=== PATIENT | female | born 1960 | race Caucasian/White ===

== ENCOUNTER 2017-05-30 09:54 | Day surgery (SDC) | payer OTHER ==
[~2017-05-30 09:54] MED LIST: SUCCINYLCHOLINE CHLORIDE 100 MG/5 ML SYG IV
[2017-05-30 10:49] LABS: ADD MAN DIFF? NO
[2017-05-30 10:55] LABS: BASOPHIL # 0.1 10^3/ul (0.0-0.1); BASOPHILS % 0.8 % (0.0-2.0); EOSINOPHILS % 0.5 % (0.0-7.0); HEMATOCRIT 39.5 % (37.0-47.0); HEMOGLOBIN 12.8 g/dl (12.0-16.0); LYMPHOCYTES # 2.3 10^3/ul (0.8-2.9); LYMPHOCYTES % 29.1 % (15.0-51.0); MEAN CORPUSCULAR HEMOGLOBIN 26.8 pg (29.0-33.0); MEAN CORPUSCULAR HGB CONC 32.4 g/dl (32.0-37.0); MEAN CORPUSCULAR VOLUME 82.8 fl (82.0-101.0); MEAN PLATELET VOLUME 10.2 fl (7.4-10.4); MONOCYTE # 0.5 10^3/ul (0.3-0.9); MONOCYTES % 6.6 % (0.0-11.0); NEUTROPHILS % 62.5 % (39.0-77.0); PLATELET COUNT 328 10^3/UL (140-415); RED BLOOD COUNT 4.77 10^6/ul (4.20-5.40); RED CELL DISTRIBUTION WIDTH 12.7 % (11.5-14.5)
[2017-05-30] MEDS ORDERED: PROPOFOL 20 ML (11:04)
[2017-05-30] MEDS ORDERED: MIDAZOLAM 1 MG/ML 2 ML INJ (11:04)
[2017-05-30] MEDS ORDERED: DEXAMETHASONE 4 MG/ML 1 ML INJ (11:04)
[2017-05-30] MEDS ORDERED: FENTAnyl 50 MCG/ML VIAL (11:04)
[2017-05-30] MEDS ORDERED: NEOSTIGMINE 3 MG/3 ML SYRINGE (11:04)
[2017-05-30] MEDS ORDERED: ROCURONIUM 50 MG INJ (11:04)
[2017-05-30] MEDS ORDERED: GLYCOPYRROLATE 0.4 MG INJ (11:04)
[2017-05-30] MEDS ORDERED: CEFAZOLIN 1 GM INJ (11:04)
[2017-05-30] MEDS ORDERED: ONDANSETRON 4 MG INJ ×2 (11:04→11:41)
[2017-05-30 11:12] LABS: ALANINE AMINOTRANSFERASE 39 IU/L (13-69); ALBUMIN 4.2 g/dl (3.3-4.9); ALKALINE PHOSPHATASE 78 IU/L (42-121); ANION GAP 16 (8-16); ASPARTATE AMINO TRANSFERASE 22 IU/L (15-46); BILIRUBIN,INDIRECT 0.2 mg/dl (0-1.1); BILIRUBIN,TOTAL 0.2 mg/dl (0.2-1.3); CARBON DIOXIDE 25 mmol/L (21-31); CHLORIDE 104 mmol/L (97-110); GLUCOSE 196 mg/dl (70-220); TOTAL PROTEIN 7.7 g/dl (6.1-8.1)
[2017-05-30 11:13] LABS: BLOOD UREA NITROGEN 10 mg/dl (7-20); CALCIUM 9.4 mg/dl (8.4-10.2); CREATININE 0.43 mg/dl (0.44-1.00); POTASSIUM 4.3 mmol/L (3.5-5.1); SODIUM 141 mmol/L (135-144)
[2017-05-30 11:26] LABS: INR 0.97
[2017-05-30] MEDS ORDERED: SUGAMMADEX SODIUM 200 MG/2 ML VIAL IV (11:33)
[2017-05-30] MEDS ORDERED: TRIMETHOBENZAMIDE 100 MG/ML VIAL IM (12:00)
[2017-05-30] MEDS ORDERED: MIDAZOLAM 1 MG/ML 2 ML INJ IV (12:00)
[2017-05-30] MEDS ORDERED: FENTAnyl 50 MCG/ML VIAL IV ×3 (12:00)
[2017-05-30] MEDS ORDERED: HYDROmorphONE (0.2 MG/ML) 10ML SYG IV ×3 (12:00)
[2017-05-30] MEDS ORDERED: ONDANSETRON 4 MG INJ IV (12:00)
[2017-05-30] MEDS ORDERED: LABETALOL HCL 20MG INJ IV (12:00)
[2017-05-30] MEDS ORDERED: IPRATROPIUM (NEB) 0.5 MG/2.5 ML AMP HHN (12:00)
[2017-05-30] MEDS ORDERED: OXYCODONE/ACETAMINOPHEN (5/325) TAB PO ×2 (12:00)
[2017-05-30] MEDS ORDERED: hydrALAzine 20 MG INJ IV (12:00)
[2017-05-30] MEDS ORDERED: EPHEDrine SULFATE 50 MG/5 ML SYG IV (12:00)
[2017-05-30] MEDS ORDERED: DIPHENHYDRAMINE 50 MG INJ IV (12:00)
[2017-05-30] MEDS ORDERED: MEPERIDINE 25 MG INJ IV (12:00)
[2017-05-30] MEDS ORDERED: ALBUTEROL 0.083% (NEB) 2.5 MG/3 ML AMP HHN (12:00)
[2017-05-30] MEDS ORDERED: ACETAMINOPHEN 325 MG TAB PO (12:30)
[2017-05-30] MEDS ORDERED: HYDROCODONE/APAP (5/325) TAB PO (12:30)
[2017-05-30] MEDS: LIDOCAINE 1%/EPI 30 ML INJ (12:58)
[2017-05-30] MEDS: ONDANSETRON 4 MG INJ IV (14:27)
== END 2017-05-30 14:47 | disposition home or self-care (01) ==
LOC: SDS 09:54
DX: D23.12 Other benign neoplasm of skin of left eyelid, including canthus (principal); D23.11 Other benign neoplasm of skin of right eyelid, including canthus; E11.9 Type 2 diabetes mellitus without complications; I10 Essential (primary) hypertension
CPT/HCPCS: 67840; 71045; 80053; 82962; 84703; 85025; 85610; 85730; 88307

== ENCOUNTER 2018-09-30 00:39 | Inpatient (IN) | payer OTHER ==
[2018-09-30 01:04] LABS: ADD MAN DIFF? NO
[2018-09-30 01:05] LABS: WHITE BLOOD COUNT 19.2 10^3/ul (4.8-10.8)
[2018-09-30 01:05] LABS: ABNORMAL IP MESSAGE 1; BASOPHIL # 0.1 10^3/ul (0.0-0.1); BASOPHILS % 0.7 % (0.0-2.0); EOSINOPHILS # 0.1 10^3/ul (0.0-0.5); EOSINOPHILS % 0.4 % (0.0-7.0); HEMATOCRIT 42.1 % (37.0-47.0); HEMOGLOBIN 12.9 g/dl (12.0-16.0); LYMPHOCYTES # 8.9 10^3/ul (0.8-2.9); LYMPHOCYTES % 46.3 % (15.0-51.0); MEAN CORPUSCULAR HEMOGLOBIN 27.9 pg (29.0-33.0); MEAN CORPUSCULAR HGB CONC 30.6 g/dl (32.0-37.0); MEAN CORPUSCULAR VOLUME 90.9 fl (82.0-101.0); MEAN PLATELET VOLUME 10.9 fl (7.4-10.4); MONOCYTE # 0.6 10^3/ul (0.3-0.9); MONOCYTES % 3.3 % (0.0-11.0); NEUTROPHIL # 8.9 10^3/ul (1.6-7.5); NEUTROPHILS % 46.2 % (39.0-77.0); NUCLEATED RED BLOOD CELLS% 0.2 /100WBC (0.0-0.0); PLATELET COUNT 203 10^3/UL (140-415); RED BLOOD COUNT 4.63 10^6/ul (4.20-5.40); RED CELL DISTRIBUTION WIDTH 12.4 % (11.5-14.5)
[2018-09-30 01:11] LABS: INR 1.13; PROTIME 14.6 Sec (11.9-14.9); PT RATIO 1.1
[2018-09-30 01:12] LABS: PARTIAL THROMBOPLASTIN TIME 42.7 Sec (23.0-35.0)
[2018-09-30] MEDS: morphine 4 MG/ML VIAL IV (01:12)
[2018-09-30 01:15] LABS: POSITIVE DIFF @See below
[2018-09-30 01:18] LABS: ALANINE AMINOTRANSFERASE 81 IU/L (13-69); ALBUMIN 3.3 g/dl (3.3-4.9); ALBUMIN/GLOBULIN RATIO 1.32; ALKALINE PHOSPHATASE 58 IU/L (42-121); ANION GAP 15 (5-13); ASPARTATE AMINO TRANSFERASE 67 IU/L (15-46); BILIRUBIN,INDIRECT 0.3 mg/dl (0-1.1); BILIRUBIN,TOTAL 0.3 mg/dl (0.2-1.3); BLOOD UREA NITROGEN 14 mg/dl (7-20); CALCIUM 11.2 mg/dl (8.4-10.2); CARBON DIOXIDE 19 mmol/L (21-31); CHLORIDE 99 mmol/L (97-110); CREATININE 0.65 mg/dl (0.44-1.00); Estimated GFR > 60 mL/min (>60); LIPASE 811 U/L (23-300); MAGNESIUM 2.8 mg/dl (1.7-2.5); PHOSPHORUS 7.6 mg/dl (2.5-4.9); SODIUM 133 mmol/L (135-144); TOTAL PROTEIN 5.8 g/dl (6.1-8.1)
[2018-09-30 01:21] LABS: POTASSIUM 2.9 mmol/L (3.5-5.1)
[2018-09-30 01:22] LABS: GLUCOSE 610 mg/dl (70-220)
[2018-09-30] MEDS ORDERED: HEPARIN 1000 UNITS/ML 10 ML INJ (01:25)
[2018-09-30] MEDS ORDERED: LIDOCAINE 1% (MDV) 20 ML INJ (01:25)
[2018-09-30] MEDS ORDERED: IODIXANOL LOCM 100 ML BTL (01:25)
[2018-09-30] MEDS ORDERED: VERAPAMIL 5 MG INJ (01:26)
[2018-09-30] MEDS ORDERED: MIDAZOLAM 1 MG/ML 2 ML INJ (01:26)
[2018-09-30] MEDS ORDERED: FENTAnyl 50 MCG/ML VIAL (01:26)
[2018-09-30] MEDS ORDERED: NITROGLYCERIN (IC) 100 MCG/ML INJ (01:26)
[2018-09-30] MEDS: POTASSIUM CHLORIDE 50 ML IVPB ×4 (01:30→15:05)
[2018-09-30 01:33] LABS: ADD UMIC NO; ETHANOL < 10.0 mg/dl (0-0); UR ASCORBIC ACID NEGATIVE (NEGATIVE); UR BILIRUBIN (Dip) NEGATIVE (NEGATIVE); UR BLOOD (Dip) NEGATIVE (NEGATIVE); UR CLARITY CLEAR (CLEAR); UR COLOR YELLOW (YELLOW); UR GLUCOSE (Dip) 1+ mg/dL (NEGATIVE); UR KETONES (Dip) 1+ mg/dL (NEGATIVE); UR LEUKOCYTE ESTERASE (Dip) NEGATIVE Leu/ul (NEGATIVE); UR NITRITE (Dip) NEGATIVE (NEGATIVE); UR SPECIFIC GRAVITY (Dip) 1.021 (1.003-1.030); UR TOTAL PROTEIN (Dip) NEGATIVE (NEGATIVE); UR UROBILINOGEN (Dip) NEGATIVE (NEGATIVE)
[2018-09-30 01:35] LABS: TROPONIN-I 0.255 ng/ml (0.000-0.120)
[2018-09-30] MEDS ORDERED: PROPOFOL 100 ML (01:50)
[2018-09-30] MEDS ORDERED: HYDROCODONE/APAP (5/325) TAB PO (02:00)
[2018-09-30] MEDS: ACCU-CHEK XX ×29 (02:00→23:00)
[2018-09-30] MEDS ORDERED: ONDANSETRON 4 MG INJ IV (02:00)
[2018-09-30] MEDS ORDERED: morphine 2 MG INJ IV (02:00)
[2018-09-30] MEDS ORDERED: NITROGLYCERIN (SL) 0.4 MG TAB SL (02:00)
[2018-09-30] MEDS ORDERED: ACETAMINOPHEN 650 MG SUPP PR (02:00)
[2018-09-30] MEDS ORDERED: DEXTROSE 50% 50 ML SYRINGE IV ×2 (02:00)
[2018-09-30] MEDS ORDERED: MAGNESIUM HYDROXIDE 30ML CUP PO (02:00)
[2018-09-30] MEDS ORDERED: NACL 0.9% 3 ML SYG IV (02:00)
[2018-09-30] MEDS ORDERED: LORAZEPAM 2 MG INJ IV (02:00)
[2018-09-30] MEDS ORDERED: ALBUTEROL/IPRATROPIUM (NEB) 3 ML AMP HHN (02:00)
[2018-09-30] MEDS ORDERED: hydrALAzine 20 MG INJ IV (02:00)
[2018-09-30] MEDS ORDERED: DOCUSATE SODIUM 100 MG CAP PO (02:00)
[2018-09-30] MEDS ORDERED: MEPERIDINE 25 MG INJ IV ×3 (02:00→07:30)
[2018-09-30 02:14] LABS: LACTIC ACID 12.5 mmol/L (0.5-2.0)
[2018-09-30 02:15] LABS: AMPHETAMINE/METHAMPHETAMINE Negative (NEGATIVE); BARBITURATES Negative (NEGATIVE); BENZODIAZEPINES Negative (NEGATIVE); CANNABINOIDS Negative (NEGATIVE); COCAINE Negative (NEGATIVE); OPIATES Negative (NEGATIVE)
[2018-09-30] MEDS ORDERED: POTASSIUM CHLORIDE 50 ML (02:24)
[2018-09-30 02:39] LABS: CREATINE KINASE 179 IU/L (23-200)
[2018-09-30] MEDS ORDERED: TICAGRELOR 90 MG TABLET (02:43)
[2018-09-30] MEDS ORDERED: ASPIRIN 325 MG TAB (02:50)
[2018-09-30] MEDS ORDERED: ASPIRIN 81 MG TAB (02:51)
[2018-09-30 02:52] LABS: CK INDEX 5.2; CK-MB 9.28 ng/ml (0.0-2.4)
[2018-09-30 03:25] LABS: TROPONIN-I 0.866 ng/ml (0.000-0.120)
[2018-09-30] MEDS: AMIODARONE 900 MG in DEXTROSE 5% 482 ML IV (03:33)
[2018-09-30] MEDS: SODIUM CHLORIDE 0.9% 1L BAG IV* (03:34)
[2018-09-30] MEDS: INSULIN HUMAN REGULAR 100 UNIT in SOD CHLORIDE 0.9% 99 ML IV ×3 (03:36→15:30)
[2018-09-30 03:41] LABS: AADO2 Arterial 569.3 mmHg (7.0-24.0); Arterial Base Excess -15.3 mmol/L (-3.0-3); Arterial Blood Gas Oxygen Sat 92.6 mmHG (95.0-98.0); Arterial COHb 0.1 % (0.0-3.0); Arterial Fraction of Oxyhgb 92.2 % (93.0-99.0); Arterial HCO3 15.5 mmol/L (22.0-26.0); Arterial MetHb 0.3 % (0.0-1.5); Arterial pCO2 56.8 mmhg (35-45); MODE VENT - AC; Site A-Line
[2018-09-30] MEDS: PROPOFOL 100 ML IV (03:41)
[2018-09-30] MEDS: NORepinephrine 8MG/250 ML (PMX 250 ML IV (03:43)
[2018-09-30] MEDS: TICAGRELOR 90 MG TABLET PO ×3 (03:53→20:34)
[2018-09-30] MEDS: ATORVASTATIN 80 MG TAB PO ×2 (03:54→20:40)
[2018-09-30] MEDS: VECURONIUM 100 MG in DEXTROSE 5% 100 ML IV (04:00)
[2018-09-30 04:06] LABS: ADD MAN DIFF? NO
[2018-09-30] MEDS: VANCOMYCIN 1 GM (PMX) 250 ML IVPB (04:22)
[2018-09-30] MEDS: CEFEPIME 2GM/50 ML (PMX) 50 ML IVPB (04:23)
[2018-09-30 04:28] LABS: CHOL/HDL RATIO 6.7 RATIO; CHOLESTEROL 216 mg/dl (100-200); HDL CHOLESTEROL 32 mg/dl (37-92); LDL CHOLESTEROL,CALCULATED 160 mg/dl; TRIGLYCERIDES 122 mg/dl (0-149)
[2018-09-30 04:28] LABS: HEMOGLOBIN A1C 7.7 % (0-5.9); POTASSIUM 5.8 mmol/L (3.5-5.1)
[2018-09-30 04:30] LABS: INR 1.62; PROTIME 19.3 Sec (11.9-14.9); PT RATIO 1.5
[2018-09-30 04:34] LABS: ANION GAP 11 (5-13); BLOOD UREA NITROGEN 19 mg/dl (7-20); CALCIUM 9.3 mg/dl (8.4-10.2); CARBON DIOXIDE 17 mmol/L (21-31); CHLORIDE 106 mmol/L (97-110); CREATININE 0.84 mg/dl (0.44-1.00); Estimated GFR > 60 mL/min (>60); POTASSIUM 5.9 mmol/L (3.5-5.1); SODIUM 134 mmol/L (135-144)
[2018-09-30 04:36] LABS: AMYLASE 191 U/L (11-123); LIPASE 589 U/L (23-300)
[2018-09-30 04:36] LABS: MAGNESIUM 2.1 mg/dl (1.7-2.5)
[2018-09-30 04:38] LABS: GLUCOSE 595 mg/dl (70-220)
[2018-09-30] MEDS: PIPER-TAZO 3.375 GM IV (PMX) 100 ML IVPB ×3 (04:43→18:05)
[2018-09-30 04:46] LABS: FREE T4 (FREE THYROXINE) 1.12 ng/dl (0.64-1.79)
[2018-09-30] MEDS: ARTIFICIAL TEARS 15 ML OPH BOTH EYES ×3 (05:16→18:05)
[2018-09-30 05:32] LABS: WHITE BLOOD COUNT 13.8 10^3/ul (4.8-10.8)
[2018-09-30 05:32] LABS: BASOPHIL # 0.1 10^3/ul (0.0-0.1); BASOPHILS % 0.9 % (0.0-2.0); EOSINOPHILS % 0.1 % (0.0-7.0); HEMATOCRIT 47.1 % (37.0-47.0); HEMOGLOBIN 14.9 g/dl (12.0-16.0); LYMPHOCYTES # 2.2 10^3/ul (0.8-2.9); LYMPHOCYTES % 15.9 % (15.0-51.0); MEAN CORPUSCULAR HEMOGLOBIN 28.2 pg (29.0-33.0); MEAN CORPUSCULAR HGB CONC 31.6 g/dl (32.0-37.0); MONOCYTE # 0.3 10^3/ul (0.3-0.9); MONOCYTES % 2.1 % (0.0-11.0); NEUTROPHIL # 11.1 10^3/ul (1.6-7.5); NEUTROPHILS % 80.3 % (39.0-77.0); NUCLEATED RED BLOOD CELLS% 0.1 /100WBC (0.0-0.0); PLATELET COUNT 468 10^3/UL (140-415); RED BLOOD COUNT 5.29 10^6/ul (4.20-5.40); RED CELL DISTRIBUTION WIDTH 12.5 % (11.5-14.5)
[2018-09-30] MEDS: PHENYLephrine 20MG IN 250 ML 250 ML IV ×2 (05:50→08:30)
[2018-09-30] MEDS: OCULAR LUBRICANT 3.5 GM OPH OINT BOTH EYES ×3 (06:00→18:05)
[2018-09-30] MEDS: LEVETIRACETAM 1000 MG (PMX) 100 ML IVPB ×2 (06:16→20:39)
[2018-09-30 07:25] LABS: D-DIMER > 10000.00 ng/ml (<460)
[2018-09-30 07:26] LABS: PARTIAL THROMBOPLASTIN TIME 163.7 Sec (23.0-35.0)
[2018-09-30 07:50] LABS: AADO2 Arterial 593.9 mmHg (7.0-24.0); Arterial Base Excess -18.4 mmol/L (-3.0-3); Arterial Blood Gas Oxygen Sat 89.9 mmHG (95.0-98.0); Arterial COHb 0 % (0.0-3.0); Arterial Fraction of Oxyhgb 89.7 % (93.0-99.0); Arterial HCO3 13.8 mmol/L (22.0-26.0); Arterial MetHb 0.2 % (0.0-1.5); Arterial pCO2 55.4 mmhg (35-45); MODE VENT - AC; Site A-Line; Temperature 35.3 C
[2018-09-30] MEDS ORDERED: NORepinephrine 8MG/250 ML (PMX 250 ML IV (08:00)
[2018-09-30] MEDS: MEPERIDINE 25 MG INJ IV (08:17)
[2018-09-30 08:22] LABS: LACTIC ACID 7.1 mmol/L (0.5-2.0)
[2018-09-30] MEDS: NA BICARBONATE 8.4% 50 ML SYG IV ×2 (08:56→12:46)
[2018-09-30] MEDS: BENAZEPRIL 10 MG TAB PO (08:56)
[2018-09-30] MEDS: VASOPRESSIN 60 UNIT in DEXTROSE 5% 57 ML IV ×2 (09:00→21:00)
[2018-09-30] MEDS: ASPIRIN (EC) 81 MG TAB PO (09:00)
[2018-09-30] MEDS: FAMOTIDINE 20 MG INJ IV ×2 (09:19→20:39)
[2018-09-30] MEDS ORDERED: SODIUM BICARBONATE (IV ADD) 100 MEQ in SOD CHLORIDE 0.45% 1,000 ML IV (09:30)
[2018-09-30] MEDS: SODIUM BICARBONATE (IV ADD) 100 MEQ in SOD CHLORIDE 0.45% 1,000 ML IV ×2 (09:38→23:34)
[2018-09-30] MEDS: ASPIRIN 81 MG TAB NGT (09:38)
[2018-09-30] MEDS: PHENYLephrine 80 MG in DEXTROSE 5% 242 ML IV (10:11)
[2018-09-30] MEDS: NORepinephrine 32 MG in DEXTROSE 5% 218 ML IV (11:37)
[2018-09-30 11:58] LABS: HEMATOCRIT 47.6 % (37.0-47.0); HEMOGLOBIN 15.3 g/dl (12.0-16.0); MEAN CORPUSCULAR HEMOGLOBIN 28.3 pg (29.0-33.0); MEAN CORPUSCULAR HGB CONC 32.1 g/dl (32.0-37.0); MEAN CORPUSCULAR VOLUME 88.1 fl (82.0-101.0); MEAN PLATELET VOLUME 9.8 fl (7.4-10.4); NUCLEATED RED BLOOD CELLS% 0.1 /100WBC (0.0-0.0); PLATELET COUNT 375 10^3/UL (140-415); RED CELL DISTRIBUTION WIDTH 12.5 % (11.5-14.5)
[2018-09-30 12:01] LABS: ADD MAN DIFF? YES; POSITIVE DIFF @See below
[2018-09-30 12:17] LABS: AADO2 Arterial 623.2 mmHg (7.0-24.0); Arterial Base Excess -9.9 mmol/L (-3.0-3); Arterial Blood Gas Oxygen Sat 94.2 mmHG (95.0-98.0); Arterial COHb 0 % (0.0-3.0); Arterial Fraction of Oxyhgb 94.1 % (93.0-99.0); Arterial HCO3 18.7 mmol/L (22.0-26.0); Arterial MetHb 0.1 % (0.0-1.5); Arterial pCO2 42.1 mmhg (35-45); MODE VENT - AC; Site A-Line; Temperature 32.5 C
[2018-09-30 12:19] LABS: ANION GAP 11 (5-13); BLOOD UREA NITROGEN 26 mg/dl (7-20); CALCIUM 9.3 mg/dl (8.4-10.2); CARBON DIOXIDE 23 mmol/L (21-31); CHLORIDE 112 mmol/L (97-110); CREATININE 0.97 mg/dl (0.44-1.00); Estimated GFR 59 mL/min (>60); GLUCOSE 209 mg/dl (70-220); MAGNESIUM 1.8 mg/dl (1.7-2.5); SODIUM 146 mmol/L (135-144)
[2018-09-30 12:25] LABS: POTASSIUM 2.5 mmol/L (3.5-5.1)
[2018-09-30 12:25] LABS: LACTIC ACID 7.5 mmol/L (0.5-2.0)
[2018-09-30] MEDS: MAGNESIUM SULFATE 2 GM/50 ML 50 ML IVPB (12:46)
[2018-09-30 12:52] LABS: ANISOCYTOSIS 2+ (0-0); BAND NEUTROPHILS #M 6.6 10^3/ul (0.0-0.6); BAND NEUTROPHILS % (M) 44 % (0-4); ERYTHROBLAST% (NRBC) (M) 1 % (0-0); GIANT THROMBO% (M) 1 % (0-0); LYMPHOCYTES #M 2.5 10^3/ul (0.8-2.9); LYMPHOCYTES % (M) 17 % (15-51); METAMYELOCYTES #M 0.1 10^3/ul (0.0-0.0); METAMYELOCYTES %M 1 % (0-0); MICROCYTOSIS 2+ (0-0); MONOCYTE #M 0.7 10^3/ul (0.3-0.9); MONOCYTES % (M) 5 % (0-11); PLATELET ESTIMATE NORMAL; POIKILOCYTOSIS 1+ (0-0); POLYCHROMASIA 3+ (0-0); SEG NEUT #M 5.9 10^3/ul (1.6-7.5); SEGMENTED NEUTROPHILS (M) % 33 % (39-77)
[2018-09-30 12:58] LABS: CK INDEX 7.8; CREATINE KINASE 7128 IU/L (23-200)
[2018-09-30 13:16] LABS: POTASSIUM 2.6 mmol/L (3.5-5.1)
[2018-09-30] MEDS ORDERED: POTASSIUM CHLORIDE 100 ML (13:41)
[2018-09-30] MEDS ORDERED: POTASSIUM CHLORIDE 100 ML IVPB ×2 (14:00)
[2018-09-30 18:36] LABS: AADO2 Arterial 609.4 mmHg (7.0-24.0); Arterial Base Excess -2.9 mmol/L (-3.0-3); Arterial Blood Gas Oxygen Sat 95.8 mmHG (95.0-98.0); Arterial COHb 0.3 % (0.0-3.0); Arterial Fraction of Oxyhgb 95.4 % (93.0-99.0); Arterial HCO3 23.1 mmol/L (22.0-26.0); Arterial MetHb 0.1 % (0.0-1.5); Arterial pCO2 40.2 mmhg (35-45); MODE VENT - AC; Site A-Line; Temperature 34.8 C
[2018-09-30 19:12] LABS: HEMATOCRIT 44.2 % (37.0-47.0); HEMOGLOBIN 14.5 g/dl (12.0-16.0); MEAN CORPUSCULAR HEMOGLOBIN 27.9 pg (29.0-33.0); MEAN CORPUSCULAR HGB CONC 32.8 g/dl (32.0-37.0); MEAN CORPUSCULAR VOLUME 85.2 fl (82.0-101.0); MEAN PLATELET VOLUME 10.1 fl (7.4-10.4); PLATELET COUNT 330 10^3/UL (140-415); RED BLOOD COUNT 5.19 10^6/ul (4.20-5.40); RED CELL DISTRIBUTION WIDTH 12.5 % (11.5-14.5)
[2018-09-30 19:12] LABS: WHITE BLOOD COUNT 13.9 10^3/ul (4.8-10.8)
[2018-09-30 19:14] LABS: POSITIVE DIFF @See below
[2018-09-30 19:15] LABS: ADD MAN DIFF? YES
[2018-09-30 19:32] LABS: LIPASE 212 U/L (23-300)
[2018-09-30 19:32] LABS: AMYLASE 200 U/L (11-123); ANION GAP 6 (5-13); BLOOD UREA NITROGEN 32 mg/dl (7-20); CARBON DIOXIDE 28 mmol/L (21-31); CHLORIDE 112 mmol/L (97-110); CREATININE 0.93 mg/dl (0.44-1.00); Estimated GFR > 60 mL/min (>60); GLUCOSE 111 mg/dl (70-220); MAGNESIUM 2.4 mg/dl (1.7-2.5); POTASSIUM 3.1 mmol/L (3.5-5.1); SODIUM 146 mmol/L (135-144)
[2018-09-30 19:36] LABS: LACTIC ACID 5.6 mmol/L (0.5-2.0)
[2018-09-30 19:41] LABS: INR 1.28; PARTIAL THROMBOPLASTIN TIME 28.4 Sec (23.0-35.0); PROTIME 16.1 Sec (11.9-14.9); PT RATIO 1.3
[2018-09-30 19:56] LABS: BAND NEUTROPHILS #M 4.3 10^3/ul (0.0-0.6); BAND NEUTROPHILS % (M) 31 % (0-4); BURR CELLS 1+ (0-0); GIANT THROMBO% (M) 3 % (0-0); LYMPHOCYTES #M 1.2 10^3/ul (0.8-2.9); LYMPHOCYTES % (M) 9 % (15-51); METAMYELOCYTES #M 0.1 10^3/ul (0.0-0.0); METAMYELOCYTES %M 1 % (0-0); MONOCYTE #M 0.9 10^3/ul (0.3-0.9); MONOCYTES % (M) 7 % (0-11); PLATELET ESTIMATE NORMAL; POIKILOCYTOSIS 1+ (0-0); SEG NEUT #M 7.8 10^3/ul (1.6-7.5); SEGMENTED NEUTROPHILS (M) % 52 % (39-77); SMUDGE%M 3 % (0-0)
[2018-09-30] MEDS: POTASSIUM CHLORIDE 100 ML IVPB (23:09)
[2018-09-30] MEDS: DOPamine 800 MG in DEXTROSE 5% 230 ML IV (23:34)
[2018-10-01] MEDS: ARTIFICIAL TEARS 15 ML OPH BOTH EYES ×5 (00:03→23:49)
[2018-10-01] MEDS: OCULAR LUBRICANT 3.5 GM OPH OINT BOTH EYES ×5 (00:04→23:49)
[2018-10-01] MEDS: VASOPRESSIN 60 UNIT in DEXTROSE 5% 57 ML IV ×2 (00:08→20:23)
[2018-10-01] MEDS: PIPER-TAZO 3.375 GM IV (PMX) 100 ML IVPB ×5 (00:14→23:49)
[2018-10-01] MEDS: ACCU-CHEK XX ×25 (01:00→23:57)
[2018-10-01] MEDS: ACETAMINOPHEN 650 MG SUPP PR ×4 (02:00→20:00)
[2018-10-01] MEDS: ACETAMINOPHEN 650MG/20.3ML CUP PO ×4 (02:00→20:36)
[2018-10-01 02:04] LABS: AADO2 Arterial 649.2 mmHg (7.0-24.0); Arterial Base Excess -0.8 mmol/L (-3.0-3); Arterial Blood Gas Oxygen Sat 88.4 mmHG (95.0-98.0); Arterial COHb 0.4 % (0.0-3.0); Arterial Fraction of Oxyhgb 87.9 % (93.0-99.0); Arterial HCO3 23.9 mmol/L (22.0-26.0); Arterial MetHb 0.2 % (0.0-1.5); Arterial pCO2 33.2 mmhg (35-45); MODE VENT - AC; Site A-Line
[2018-10-01 05:44] LABS: CHOL/HDL RATIO 3.5 RATIO; HDL CHOLESTEROL 42 mg/dl (37-92); LDL CHOLESTEROL,CALCULATED 79 mg/dl; TRIGLYCERIDES 136 mg/dl (0-149)
[2018-10-01 05:44] LABS: CHOLESTEROL 148 mg/dl (100-200)
[2018-10-01 05:47] LABS: HEMOGLOBIN A1C 7.6 % (0-5.9)
[2018-10-01 05:48] LABS: ANION GAP 8 (5-13); BLOOD UREA NITROGEN 37 mg/dl (7-20); CALCIUM 8.8 mg/dl (8.4-10.2); CARBON DIOXIDE 27 mmol/L (21-31); CHLORIDE 110 mmol/L (97-110); CREATININE 0.92 mg/dl (0.44-1.00); Estimated GFR > 60 mL/min (>60); GLUCOSE 144 mg/dl (70-220); MAGNESIUM 2.2 mg/dl (1.7-2.5); PHOSPHORUS 3.8 mg/dl (2.5-4.9); POTASSIUM 3.4 mmol/L (3.5-5.1); SODIUM 145 mmol/L (135-144)
[2018-10-01 05:49] LABS: LIPASE 98 U/L (23-300)
[2018-10-01 05:49] LABS: AMYLASE 115 U/L (11-123)
[2018-10-01 06:09] LABS: LACTIC ACID 4.9 mmol/L (0.5-2.0)
[2018-10-01 06:25] LABS: INR 1.24; PROTIME 15.7 Sec (11.9-14.9); PT RATIO 1.2
[2018-10-01 06:26] LABS: PARTIAL THROMBOPLASTIN TIME 29.3 Sec (23.0-35.0)
[2018-10-01 08:13] LABS: Arterial Base Excess 0.8 mmol/L (-3.0-3); Arterial Blood Gas Oxygen Sat 96.9 mmHG (95.0-98.0); Arterial COHb 0.3 % (0.0-3.0); Arterial Fraction of Oxyhgb 96.4 % (93.0-99.0); Arterial HCO3 24.1 mmol/L (22.0-26.0); Arterial MetHb 0.2 % (0.0-1.5); MODE VENT - AC; Site A-Line
[2018-10-01 08:41] LABS: Arterial pCO2 30.5 mmhg (35-45); Temperature 34.3 C
[2018-10-01] MEDS: FAMOTIDINE 20 MG INJ IV ×2 (08:41→20:35)
[2018-10-01] MEDS: BENAZEPRIL 10 MG TAB PO (08:41)
[2018-10-01] MEDS: TICAGRELOR 90 MG TABLET PO ×2 (08:43→20:35)
[2018-10-01] MEDS: ASPIRIN 81 MG TAB NGT (08:44)
[2018-10-01] MEDS: LEVETIRACETAM 1000 MG (PMX) 100 ML IVPB ×2 (08:44→20:34)
[2018-10-01 09:19] LABS: WHITE BLOOD COUNT 16.7 10^3/ul (4.8-10.8)
[2018-10-01 09:19] LABS: HEMATOCRIT 39.9 % (37.0-47.0); HEMOGLOBIN 13.5 g/dl (12.0-16.0); MEAN CORPUSCULAR HEMOGLOBIN 28.1 pg (29.0-33.0); MEAN CORPUSCULAR HGB CONC 33.8 g/dl (32.0-37.0); MEAN PLATELET VOLUME 10.8 fl (7.4-10.4); PLATELET COUNT 235 10^3/UL (140-415); RED BLOOD COUNT 4.81 10^6/ul (4.20-5.40); RED CELL DISTRIBUTION WIDTH 12.8 % (11.5-14.5)
[2018-10-01 09:21] LABS: ADD MAN DIFF? YES; POSITIVE DIFF @See below
[2018-10-01 10:05] LABS: ANISOCYTOSIS 3+ (0-0); BAND NEUTROPHILS % (M) 36 % (0-4); BURR CELLS 2+ (0-0); GIANT THROMBO% (M) 1 % (0-0); LYMPHOCYTES % (M) 18 % (15-51); MICROCYTOSIS 2+ (0-0); MONOCYTES % (M) 6 % (0-11); PLATELET ESTIMATE NORMAL; POIKILOCYTOSIS 3+ (0-0); POLYCHROMASIA 1+ (0-0); SEG NEUT #M 7.7 10^3/ul (1.6-7.5); SEGMENTED NEUTROPHILS (M) % 40 % (39-77)
[2018-10-01 11:05] LABS: ADD UMIC YES; UR ASCORBIC ACID NEGATIVE (NEGATIVE); UR BILIRUBIN (Dip) NEGATIVE (NEGATIVE); UR BLOOD (Dip) 1+ mg/dL (NEGATIVE); UR CLARITY SLIGHTLY CLOUDY (CLEAR); UR COLOR YELLOW (YELLOW); UR GLUCOSE (Dip) 1+ mg/dL (NEGATIVE); UR KETONES (Dip) TRACE mg/dL (NEGATIVE); UR LEUKOCYTE ESTERASE (Dip) NEGATIVE Leu/ul (NEGATIVE); UR NITRITE (Dip) NEGATIVE (NEGATIVE); UR RBC 14 /HPF (0-5); UR SPECIFIC GRAVITY (Dip) 1.033 (1.003-1.030); UR TOTAL PROTEIN (Dip) NEGATIVE (NEGATIVE); UR UROBILINOGEN (Dip) NEGATIVE (NEGATIVE); UR WBC 7 /HPF (0-5)
[2018-10-01 12:33] LABS: ADD MAN DIFF? NO
[2018-10-01 12:34] LABS: WHITE BLOOD COUNT 11.6 10^3/ul (4.8-10.8)
[2018-10-01 12:34] LABS: BASOPHIL # 0.1 10^3/ul (0.0-0.1); BASOPHILS % 0.4 % (0.0-2.0); HEMATOCRIT 36.8 % (37.0-47.0); HEMOGLOBIN 12.6 g/dl (12.0-16.0); LYMPHOCYTES # 1.7 10^3/ul (0.8-2.9); LYMPHOCYTES % 14.3 % (15.0-51.0); MEAN CORPUSCULAR HEMOGLOBIN 27.9 pg (29.0-33.0); MEAN CORPUSCULAR HGB CONC 34.2 g/dl (32.0-37.0); MEAN CORPUSCULAR VOLUME 81.4 fl (82.0-101.0); MEAN PLATELET VOLUME 10.2 fl (7.4-10.4); MONOCYTE # 0.6 10^3/ul (0.3-0.9); MONOCYTES % 5.3 % (0.0-11.0); NEUTROPHIL # 9.2 10^3/ul (1.6-7.5); NEUTROPHILS % 79.5 % (39.0-77.0); PLATELET COUNT 149 10^3/UL (140-415); RED BLOOD COUNT 4.52 10^6/ul (4.20-5.40); RED CELL DISTRIBUTION WIDTH 12.6 % (11.5-14.5)
[2018-10-01 12:52] LABS: ANION GAP 7 (5-13); BLOOD UREA NITROGEN 36 mg/dl (7-20); CALCIUM 8.6 mg/dl (8.4-10.2); CARBON DIOXIDE 28 mmol/L (21-31); CHLORIDE 109 mmol/L (97-110); CREATININE 0.78 mg/dl (0.44-1.00); Estimated GFR > 60 mL/min (>60); GLUCOSE 155 mg/dl (70-220); MAGNESIUM 2.1 mg/dl (1.7-2.5); PHOSPHORUS 4.3 mg/dl (2.5-4.9); POTASSIUM 3.1 mmol/L (3.5-5.1); SODIUM 144 mmol/L (135-144)
[2018-10-01 12:52] LABS: LACTIC ACID 3.6 mmol/L (0.5-2.0)
[2018-10-01] MEDS: NORepinephrine 32 MG in DEXTROSE 5% 218 ML IV (12:59)
[2018-10-01] MEDS ORDERED: PHENYLephrine 20MG IN 250 ML 250 ML (13:09)
[2018-10-01] MEDS: SODIUM BICARBONATE (IV ADD) 100 MEQ in SOD CHLORIDE 0.45% 1,000 ML IV (14:07)
[2018-10-01] MEDS: PROPOFOL 100 ML IV (14:09)
[2018-10-01] MEDS: POTASSIUM CHLORIDE 20 MEQ POWDER FOR ORAL SOLN GTB (14:16)
[2018-10-01] MEDS: FUROSEMIDE 20 MG INJ IV (16:51)
[2018-10-01 18:29] LABS: HEMATOCRIT 34.9 % (37.0-47.0); MEAN CORPUSCULAR HEMOGLOBIN 27.7 pg (29.0-33.0); MEAN CORPUSCULAR HGB CONC 34.4 g/dl (32.0-37.0); MEAN CORPUSCULAR VOLUME 80.6 fl (82.0-101.0); PLATELET COUNT 209 10^3/UL (140-415); RED BLOOD COUNT 4.33 10^6/ul (4.20-5.40); RED CELL DISTRIBUTION WIDTH 13.1 % (11.5-14.5)
[2018-10-01 18:30] LABS: ADD MAN DIFF? YES; POSITIVE DIFF @See below
[2018-10-01 18:37] LABS: AADO2 Arterial 521.5 mmHg (7.0-24.0); Arterial Base Excess 1.7 mmol/L (-3.0-3); Arterial Blood Gas Oxygen Sat 98.4 mmHG (95.0-98.0); Arterial COHb 0.3 % (0.0-3.0); Arterial Fraction of Oxyhgb 97.8 % (93.0-99.0); Arterial HCO3 24.7 mmol/L (22.0-26.0); Arterial MetHb 0.3 % (0.0-1.5); Arterial pCO2 33.7 mmhg (35-45); MODE VENT - AC; Site A-Line
[2018-10-01 18:49] LABS: INR 1.35; PARTIAL THROMBOPLASTIN TIME 26.3 Sec (23.0-35.0); PROTIME 16.8 Sec (11.9-14.9); PT RATIO 1.3
[2018-10-01 18:54] LABS: AMYLASE 93 U/L (11-123)
[2018-10-01 18:54] LABS: LIPASE 37 U/L (23-300)
[2018-10-01 18:55] LABS: LACTIC ACID 4.3 mmol/L (0.5-2.0)
[2018-10-01 18:56] LABS: ANION GAP 7 (5-13); BLOOD UREA NITROGEN 37 mg/dl (7-20); CALCIUM 8.1 mg/dl (8.4-10.2); CARBON DIOXIDE 28 mmol/L (21-31); CHLORIDE 110 mmol/L (97-110); CREATININE 0.98 mg/dl (0.44-1.00); Estimated GFR 59 mL/min (>60); GLUCOSE 155 mg/dl (70-220); MAGNESIUM 2.1 mg/dl (1.7-2.5); PHOSPHORUS 5.6 mg/dl (2.5-4.9); POTASSIUM 3.7 mmol/L (3.5-5.1); SODIUM 145 mmol/L (135-144)
[2018-10-01 19:09] LABS: ANISOCYTOSIS 1+ (0-0); BAND NEUTROPHILS #M 4.9 10^3/ul (0.0-0.6); BAND NEUTROPHILS % (M) 33 % (0-4); GIANT THROMBO% (M) 2 % (0-0); LYMPHOCYTES #M 1.3 10^3/ul (0.8-2.9); LYMPHOCYTES % (M) 9 % (15-51); MICROCYTOSIS 1+ (0-0); MONOCYTES % (M) 7 % (0-11); PLATELET ESTIMATE NORMAL; POIKILOCYTOSIS 3+ (0-0); REACTIVE LYMPHOCYTES #M 0.1 10^3/ul (0.0-0.0); REACTIVE LYMPHOCYTES% (M) 1 % (0-0); SEG NEUT #M 8.2 10^3/ul (1.6-7.5); SEGMENTED NEUTROPHILS (M) % 50 % (39-77); SMUDGE%M 5 % (0-0)
[2018-10-01] MEDS: ATORVASTATIN 80 MG TAB PO (20:34)
[2018-10-01] MEDS: FENTAnyl (DRIP) 1000 mcg/100mL 100 ML IV (20:35)
[2018-10-02 00:09] LABS: AADO2 Arterial 400.9 mmHg (7.0-24.0); Arterial COHb 0.3 % (0.0-3.0); Arterial Fraction of Oxyhgb 92.5 % (93.0-99.0); Arterial HCO3 26.1 mmol/L (22.0-26.0); Arterial MetHb 0.2 % (0.0-1.5); MODE VENT - AC; Site A-Line; Temperature 36.3 C
[2018-10-02] MEDS: PROPOFOL 100 ML IV ×2 (00:13→06:01)
[2018-10-02 00:30] LABS: HEMATOCRIT 32.7 % (37.0-47.0); HEMOGLOBIN 11.3 g/dl (12.0-16.0); MEAN CORPUSCULAR HEMOGLOBIN 28.3 pg (29.0-33.0); MEAN CORPUSCULAR HGB CONC 34.6 g/dl (32.0-37.0); MEAN PLATELET VOLUME 11.2 fl (7.4-10.4); NUCLEATED RED BLOOD CELLS% 0.1 /100WBC (0.0-0.0); PLATELET COUNT 236 10^3/UL (140-415); RED BLOOD COUNT 3.99 10^6/ul (4.20-5.40); RED CELL DISTRIBUTION WIDTH 13.2 % (11.5-14.5)
[2018-10-02 00:30] LABS: WHITE BLOOD COUNT 19.4 10^3/ul (4.8-10.8)
[2018-10-02 00:33] LABS: POSITIVE DIFF @See below
[2018-10-02 00:34] LABS: ADD MAN DIFF? YES
[2018-10-02] MEDS: INSULIN HUMAN REGULAR 100 UNIT in SOD CHLORIDE 0.9% 99 ML IV (00:42)
[2018-10-02] MEDS: ACCU-CHEK XX ×23 (00:56→22:58)
[2018-10-02 01:03] LABS: ANION GAP 8 (5-13); BLOOD UREA NITROGEN 39 mg/dl (7-20); CALCIUM 8.1 mg/dl (8.4-10.2); CARBON DIOXIDE 29 mmol/L (21-31); CHLORIDE 107 mmol/L (97-110); CREATININE 1.06 mg/dl (0.44-1.00); Estimated GFR 54 mL/min (>60); GLUCOSE 177 mg/dl (70-220); PHOSPHORUS 6.1 mg/dl (2.5-4.9); POTASSIUM 3.7 mmol/L (3.5-5.1); SODIUM 144 mmol/L (135-144)
[2018-10-02 01:09] LABS: LACTIC ACID 4.7 mmol/L (0.5-2.0)
[2018-10-02 01:21] LABS: ANISOCYTOSIS 1+ (0-0); BAND NEUTROPHILS #M 4.2 10^3/ul (0.0-0.6); BAND NEUTROPHILS % (M) 22 % (0-4); BURR CELLS 1+ (0-0); GIANT THROMBO% (M) 2 % (0-0); LYMPHOCYTES #M 3.1 10^3/ul (0.8-2.9); LYMPHOCYTES % (M) 16 % (15-51); MICROCYTOSIS 1+ (0-0); MONOCYTE #M 0.1 10^3/ul (0.3-0.9); MONOCYTES % (M) 1 % (0-11); OVALOCYTES 1+ (0-0); PLATELET ESTIMATE NORMAL; POIKILOCYTOSIS 1+ (0-0); SEG NEUT #M 12.6 10^3/ul (1.6-7.5); SEGMENTED NEUTROPHILS (M) % 61 % (39-77)
[2018-10-02] MEDS: ACETAMINOPHEN 650 MG SUPP PR ×2 (01:49→07:50)
[2018-10-02] MEDS: ACETAMINOPHEN 650MG/20.3ML CUP PO ×2 (01:58→07:50)
[2018-10-02] MEDS ORDERED: SOD CHLORIDE 0.9% 500 ML IV (02:00)
[2018-10-02] MEDS: ALBUMIN HUMAN 25% 100 ML IV ×2 (02:28→03:36)
[2018-10-02] MEDS: NORepinephrine 32 MG in DEXTROSE 5% 218 ML IV (03:53)
[2018-10-02] MEDS: FUROSEMIDE 20 MG INJ IV ×2 (05:01→18:12)
[2018-10-02] MEDS: SODIUM BICARBONATE (IV ADD) 100 MEQ in SOD CHLORIDE 0.45% 1,000 ML IV (05:13)
[2018-10-02] MEDS: ARTIFICIAL TEARS 15 ML OPH BOTH EYES ×4 (05:13→23:41)
[2018-10-02] MEDS: OCULAR LUBRICANT 3.5 GM OPH OINT BOTH EYES ×4 (05:13→23:41)
[2018-10-02] MEDS: PIPER-TAZO 3.375 GM IV (PMX) 100 ML IVPB ×4 (05:22→23:40)
[2018-10-02 05:26] LABS: WHITE BLOOD COUNT 16.2 10^3/ul (4.8-10.8)
[2018-10-02 05:26] LABS: HEMATOCRIT 27.8 % (37.0-47.0); HEMOGLOBIN 9.5 g/dl (12.0-16.0); MEAN CORPUSCULAR HEMOGLOBIN 28.4 pg (29.0-33.0); MEAN CORPUSCULAR HGB CONC 34.2 g/dl (32.0-37.0); MEAN CORPUSCULAR VOLUME 83.2 fl (82.0-101.0); MEAN PLATELET VOLUME 11.4 fl (7.4-10.4); PLATELET COUNT 204 10^3/UL (140-415); RED BLOOD COUNT 3.34 10^6/ul (4.20-5.40); RED CELL DISTRIBUTION WIDTH 13.1 % (11.5-14.5)
[2018-10-02 05:39] LABS: POSITIVE DIFF @See below
[2018-10-02 05:41] LABS: ADD MAN DIFF? YES
[2018-10-02 06:24] LABS: ANION GAP 11 (5-13); BLOOD UREA NITROGEN 40 mg/dl (7-20); CARBON DIOXIDE 34 mmol/L (21-31); CHLORIDE 106 mmol/L (97-110); CREATININE 1.17 mg/dl (0.44-1.00); Estimated GFR 48 mL/min (>60); GLUCOSE 151 mg/dl (70-220); PHOSPHORUS 6.1 mg/dl (2.5-4.9); POTASSIUM 3.6 mmol/L (3.5-5.1); SODIUM 151 mmol/L (135-144)
[2018-10-02 07:16] LABS: LACTIC ACID 4.4 mmol/L (0.5-2.0)
[2018-10-02] MEDS: BENAZEPRIL 10 MG TAB NGT (08:59)
[2018-10-02] MEDS: VASOPRESSIN 60 UNIT in DEXTROSE 5% 57 ML IV ×2 (09:00→20:21)
[2018-10-02] MEDS: FAMOTIDINE 20 MG INJ IV ×2 (09:05→20:32)
[2018-10-02] MEDS: ASPIRIN 81 MG TAB NGT (09:05)
[2018-10-02] MEDS: LEVETIRACETAM 1000 MG (PMX) 100 ML IVPB ×2 (09:05→20:32)
[2018-10-02] MEDS: TICAGRELOR 90 MG TABLET PO ×2 (09:06→20:33)
[2018-10-02 10:01] LABS: ANISOCYTOSIS 2+ (0-0); BAND NEUTROPHILS #M 6.8 10^3/ul (0.0-0.6); BAND NEUTROPHILS % (M) 42 % (0-4); GIANT THROMBO% (M) 1 % (0-0); LYMPHOCYTES #M 1.7 10^3/ul (0.8-2.9); LYMPHOCYTES % (M) 11 % (15-51); MICROCYTOSIS 2+ (0-0); MONOCYTE #M 0.8 10^3/ul (0.3-0.9); MONOCYTES % (M) 5 % (0-11); OVALOCYTES 1+ (0-0); PLATELET ESTIMATE NORMAL; POLYCHROMASIA 3+ (0-0); SEG NEUT #M 7.9 10^3/ul (1.6-7.5); SEGMENTED NEUTROPHILS (M) % 42 % (39-77); SMUDGE%M 7 % (0-0)
[2018-10-02] MEDS: HEPARIN 5,000 UNIT/1 ML VIAL SC ×2 (14:22→21:44)
[2018-10-02] MEDS: ATORVASTATIN 80 MG TAB NGT (20:32)
[2018-10-03] MEDS: ACCU-CHEK XX ×4 (00:03→03:09)
[2018-10-03] MEDS: PROPOFOL 100 ML IV ×2 (02:02→10:18)
[2018-10-03 03:02] LABS: AADO2 Arterial 499.6 mmHg (7.0-24.0); Allen Test ACCEPTAB; Arterial Base Excess 4.7 mmol/L (-3.0-3); Arterial Blood Gas Oxygen Sat 95.4 mmHG (95.0-98.0); Arterial COHb 0.3 % (0.0-3.0); Arterial Fraction of Oxyhgb 94.9 % (93.0-99.0); Arterial HCO3 30.9 mmol/L (22.0-26.0); Arterial MetHb 0.2 % (0.0-1.5); Arterial pCO2 54.4 mmhg (35-45); MODE VENT - AC; Site Right Radial
[2018-10-03] MEDS ORDERED: GLUCAGON 1 MG INJ IM (04:00)
[2018-10-03] MEDS ORDERED: GLUCOSE GEL 15 GRAM TUBE PO ×2 (04:00)
[2018-10-03] MEDS ORDERED: DEXTROSE 50% 50 ML SYRINGE IV ×2 (04:00)
[2018-10-03] MEDS ORDERED: GLUCOSE GEL 15 GRAM TUBE BUCCAL (04:00)
[2018-10-03] MEDS: INSULIN ASPART [NOVOLOG] 3 ML PEN SC ×5 (04:44→21:00)
[2018-10-03] MEDS: DEXTROSE 5%-0.45% NACL 1,000 ML IV (04:51)
[2018-10-03] MEDS: PIPER-TAZO 3.375 GM IV (PMX) 100 ML IVPB ×3 (05:05→17:41)
[2018-10-03] MEDS: OCULAR LUBRICANT 3.5 GM OPH OINT BOTH EYES ×3 (05:05→17:41)
[2018-10-03] MEDS: ARTIFICIAL TEARS 15 ML OPH BOTH EYES ×3 (05:05→17:41)
[2018-10-03] MEDS: HEPARIN 5,000 UNIT/1 ML VIAL SC ×3 (05:09→21:04)
[2018-10-03 05:20] LABS: WHITE BLOOD COUNT 12.9 10^3/ul (4.8-10.8)
[2018-10-03 05:20] LABS: HEMATOCRIT 27.7 % (37.0-47.0); MEAN CORPUSCULAR HEMOGLOBIN 28.2 pg (29.0-33.0); MEAN CORPUSCULAR HGB CONC 32.5 g/dl (32.0-37.0); MEAN CORPUSCULAR VOLUME 86.8 fl (82.0-101.0); PLATELET COUNT 149 10^3/UL (140-415); RED BLOOD COUNT 3.19 10^6/ul (4.20-5.40); RED CELL DISTRIBUTION WIDTH 13.5 % (11.5-14.5)
[2018-10-03 05:42] LABS: ADD MAN DIFF? YES; POSITIVE DIFF @See below
[2018-10-03 05:44] LABS: ANION GAP 7 (5-13); BLOOD UREA NITROGEN 35 mg/dl (7-20); CARBON DIOXIDE 37 mmol/L (21-31); CHLORIDE 108 mmol/L (97-110); CREATININE 0.95 mg/dl (0.44-1.00); Estimated GFR > 60 mL/min (>60); GLUCOSE 82 mg/dl (70-220); POTASSIUM 3.5 mmol/L (3.5-5.1); SODIUM 152 mmol/L (135-144)
[2018-10-03] MEDS: FENTAnyl (DRIP) 1000 mcg/100mL 100 ML IV (05:51)
[2018-10-03 07:50] LABS: ANISOCYTOSIS 1+ (0-0); BAND NEUTROPHILS #M 3.3 10^3/ul (0.0-0.6); BAND NEUTROPHILS % (M) 26 % (0-4); GIANT THROMBO% (M) 1 % (0-0); LYMPHOCYTES #M 1.5 10^3/ul (0.8-2.9); LYMPHOCYTES % (M) 12 % (15-51); MICROCYTOSIS 1+ (0-0); MONOCYTE #M 0.3 10^3/ul (0.3-0.9); MONOCYTES % (M) 3 % (0-11); PLATELET ESTIMATE NORMAL; POLYCHROMASIA 1+ (0-0); SEGMENTED NEUTROPHILS (M) % 59 % (39-77); SMUDGE%M 1 % (0-0)
[2018-10-03] MEDS: VASOPRESSIN 60 UNIT in DEXTROSE 5% 57 ML IV ×2 (09:00→21:00)
[2018-10-03] MEDS: BENAZEPRIL 10 MG TAB NGT ×2 (09:00→10:32)
[2018-10-03] MEDS: DEXTROSE 5% 1,000 ML IV (09:00)
[2018-10-03] MEDS: LEVETIRACETAM 1000 MG (PMX) 100 ML IVPB ×2 (09:55→21:06)
[2018-10-03] MEDS: FAMOTIDINE 20 MG INJ IV ×2 (09:55→21:03)
[2018-10-03] MEDS: ASPIRIN 81 MG TAB NGT (09:55)
[2018-10-03] MEDS: TICAGRELOR 90 MG TABLET PO ×2 (10:00→21:05)
[2018-10-03 12:41] LABS: ANION GAP 6 (5-13); BLOOD UREA NITROGEN 33 mg/dl (7-20); CARBON DIOXIDE 35 mmol/L (21-31); CHLORIDE 109 mmol/L (97-110); CREATININE 0.83 mg/dl (0.44-1.00); Estimated GFR > 60 mL/min (>60); GLUCOSE 83 mg/dl (70-220); POTASSIUM 3.1 mmol/L (3.5-5.1); SODIUM 150 mmol/L (135-144)
[2018-10-03 20:31] LABS: ANION GAP 8 (5-13); BLOOD UREA NITROGEN 35 mg/dl (7-20); CALCIUM 8.5 mg/dl (8.4-10.2); CARBON DIOXIDE 32 mmol/L (21-31); CHLORIDE 110 mmol/L (97-110); CREATININE 0.81 mg/dl (0.44-1.00); Estimated GFR > 60 mL/min (>60); GLUCOSE 80 mg/dl (70-220); SODIUM 150 mmol/L (135-144)
[2018-10-03 20:34] LABS: POTASSIUM 2.8 mmol/L (3.5-5.1)
[2018-10-03] MEDS: POTASSIUM CHLORIDE 50 ML IVPB ×2 (21:06→22:43)
[2018-10-03] MEDS: ATORVASTATIN 80 MG TAB NGT (21:06)
[2018-10-04] MEDS: ARTIFICIAL TEARS 15 ML OPH BOTH EYES ×5 (00:02→23:41)
[2018-10-04] MEDS: INSULIN ASPART [NOVOLOG] 3 ML PEN SC ×7 (00:02→23:43)
[2018-10-04] MEDS: DEXTROSE 5%-0.45% NACL 1,000 ML IV ×2 (00:02→20:59)
[2018-10-04] MEDS: OCULAR LUBRICANT 3.5 GM OPH OINT BOTH EYES ×5 (00:02→23:41)
[2018-10-04] MEDS: PIPER-TAZO 3.375 GM IV (PMX) 100 ML IVPB ×5 (00:02→23:41)
[2018-10-04] MEDS: PROPOFOL 100 ML IV ×2 (00:09→12:44)
[2018-10-04] MEDS: POTASSIUM CHLORIDE 50 ML IVPB ×9 (01:43→23:40)
[2018-10-04] MEDS ORDERED: ACCU-CHEK XX (02:00)
[2018-10-04 05:08] LABS: HEMATOCRIT 27.7 % (37.0-47.0); HEMOGLOBIN 8.9 g/dl (12.0-16.0); MEAN CORPUSCULAR HEMOGLOBIN 28.1 pg (29.0-33.0); MEAN CORPUSCULAR HGB CONC 32.1 g/dl (32.0-37.0); MEAN CORPUSCULAR VOLUME 87.4 fl (82.0-101.0); MEAN PLATELET VOLUME 11.5 fl (7.4-10.4); PLATELET COUNT 165 10^3/UL (140-415); RED BLOOD COUNT 3.17 10^6/ul (4.20-5.40); RED CELL DISTRIBUTION WIDTH 13.6 % (11.5-14.5)
[2018-10-04 05:08] LABS: WHITE BLOOD COUNT 14.5 10^3/ul (4.8-10.8)
[2018-10-04 05:13] LABS: ADD MAN DIFF? YES; POSITIVE DIFF @See below
[2018-10-04 05:35] LABS: ANION GAP 8 (5-13); BLOOD UREA NITROGEN 34 mg/dl (7-20); CALCIUM 8.6 mg/dl (8.4-10.2); CARBON DIOXIDE 31 mmol/L (21-31); CHLORIDE 112 mmol/L (97-110); CREATININE 0.77 mg/dl (0.44-1.00); Estimated GFR > 60 mL/min (>60); GLUCOSE 105 mg/dl (70-220); SODIUM 151 mmol/L (135-144)
[2018-10-04 05:42] LABS: POTASSIUM 2.9 mmol/L (3.5-5.1)
[2018-10-04] MEDS: HEPARIN 5,000 UNIT/1 ML VIAL SC ×3 (06:05→20:57)
[2018-10-04] MEDS: NORepinephrine 32 MG in DEXTROSE 5% 218 ML IV (06:31)
[2018-10-04 06:44] LABS: MAGNESIUM 2.8 mg/dl (1.7-2.5)
[2018-10-04 07:13] LABS: ANISOCYTOSIS 1+ (0-0); BAND NEUTROPHILS #M 2.1 10^3/ul (0.0-0.6); BAND NEUTROPHILS % (M) 15 % (0-4); HYPOCHROMASIA 1+ (0-0); LYMPHOCYTES #M 2.7 10^3/ul (0.8-2.9); LYMPHOCYTES % (M) 19 % (15-51); MICROCYTOSIS 1+ (0-0); MONOCYTE #M 0.4 10^3/ul (0.3-0.9); MONOCYTES % (M) 3 % (0-11); PLATELET ESTIMATE NORMAL; SEG NEUT #M 9.4 10^3/ul (1.6-7.5); SEGMENTED NEUTROPHILS (M) % 63 % (39-77); SMUDGE%M 47 % (0-0); SPHEROCYTES 1+ (0-0)
[2018-10-04] MEDS: VASOPRESSIN 60 UNIT in DEXTROSE 5% 57 ML IV ×2 (07:54→20:59)
[2018-10-04] MEDS: LEVETIRACETAM 1000 MG (PMX) 100 ML IVPB ×2 (08:04→20:55)
[2018-10-04] MEDS: FAMOTIDINE 20 MG INJ IV (08:04)
[2018-10-04] MEDS: TICAGRELOR 90 MG TABLET PO ×2 (08:06→20:57)
[2018-10-04] MEDS: ASPIRIN 81 MG TAB NGT (08:08)
[2018-10-04] MEDS: BENAZEPRIL 10 MG TAB NGT (08:09)
[2018-10-04 12:46] LABS: ANION GAP 12 (5-13); BLOOD UREA NITROGEN 35 mg/dl (7-20); CALCIUM 8.5 mg/dl (8.4-10.2); CARBON DIOXIDE 27 mmol/L (21-31); CHLORIDE 113 mmol/L (97-110); CREATININE 0.79 mg/dl (0.44-1.00); Estimated GFR > 60 mL/min (>60); GLUCOSE 162 mg/dl (70-220); SODIUM 152 mmol/L (135-144)
[2018-10-04 12:49] LABS: POTASSIUM 2.8 mmol/L (3.5-5.1)
[2018-10-04] MEDS: POTASSIUM CHLORIDE 20 MEQ POWDER FOR ORAL SOLN NGT (14:12)
[2018-10-04] MEDS: LORAZEPAM 2 MG INJ IV ×2 (17:19→22:14)
[2018-10-04] MEDS: ACETAMINOPHEN 650MG/20.3ML CUP PO ×2 (17:24→23:53)
[2018-10-04 20:32] LABS: ANION GAP 8 (5-13); BLOOD UREA NITROGEN 35 mg/dl (7-20); CALCIUM 8.3 mg/dl (8.4-10.2); CARBON DIOXIDE 29 mmol/L (21-31); CHLORIDE 115 mmol/L (97-110); CREATININE 0.92 mg/dl (0.44-1.00); Estimated GFR > 60 mL/min (>60); GLUCOSE 252 mg/dl (70-220); POTASSIUM 3.2 mmol/L (3.5-5.1); SODIUM 152 mmol/L (135-144)
[2018-10-04] MEDS: FAMOTIDINE 20 MG TAB PO (20:55)
[2018-10-04] MEDS: ATORVASTATIN 80 MG TAB NGT (20:55)
[2018-10-05] MEDS: PROPOFOL 100 ML IV ×2 (00:27→14:30)
[2018-10-05] MEDS: LORAZEPAM 2 MG INJ IV ×2 (01:30→09:02)
[2018-10-05] MEDS: POTASSIUM CHLORIDE 50 ML IVPB (01:45)
[2018-10-05] MEDS: INSULIN ASPART [NOVOLOG] 3 ML PEN SC ×5 (04:24→17:29)
[2018-10-05 05:01] LABS: ADD MAN DIFF? NO
[2018-10-05 05:13] LABS: BASOPHILS % 0.1 % (0.0-2.0); EOSINOPHILS % 0.1 % (0.0-7.0); HEMATOCRIT 24.6 % (37.0-47.0); LYMPHOCYTES # 1.6 10^3/ul (0.8-2.9); MEAN CORPUSCULAR HEMOGLOBIN 28.1 pg (29.0-33.0); MEAN CORPUSCULAR HGB CONC 32.5 g/dl (32.0-37.0); MEAN CORPUSCULAR VOLUME 86.3 fl (82.0-101.0); MEAN PLATELET VOLUME 11.4 fl (7.4-10.4); MONOCYTE # 0.7 10^3/ul (0.3-0.9); MONOCYTES % 7.9 % (0.0-11.0); NEUTROPHIL # 6.8 10^3/ul (1.6-7.5); NEUTROPHILS % 74.4 % (39.0-77.0); NUCLEATED RED BLOOD CELLS% 0.4 /100WBC (0.0-0.0); PLATELET COUNT 201 10^3/UL (140-415); RED BLOOD COUNT 2.85 10^6/ul (4.20-5.40); RED CELL DISTRIBUTION WIDTH 13.8 % (11.5-14.5)
[2018-10-05 05:13] LABS: WHITE BLOOD COUNT 9.1 10^3/ul (4.8-10.8)
[2018-10-05] MEDS: HEPARIN 5,000 UNIT/1 ML VIAL SC (05:28)
[2018-10-05] MEDS: ARTIFICIAL TEARS 15 ML OPH BOTH EYES ×4 (05:28→23:37)
[2018-10-05] MEDS: PIPER-TAZO 3.375 GM IV (PMX) 100 ML IVPB ×4 (05:29→23:37)
[2018-10-05] MEDS: OCULAR LUBRICANT 3.5 GM OPH OINT BOTH EYES ×4 (05:29→23:37)
[2018-10-05] MEDS: ACETAMINOPHEN 650MG/20.3ML CUP PO ×2 (06:23→12:06)
[2018-10-05 06:29] LABS: ANION GAP 3 (5-13); BLOOD UREA NITROGEN 32 mg/dl (7-20); CALCIUM 8.4 mg/dl (8.4-10.2); CARBON DIOXIDE 32 mmol/L (21-31); CHLORIDE 119 mmol/L (97-110); CREATININE 0.87 mg/dl (0.44-1.00); Estimated GFR > 60 mL/min (>60); GLUCOSE 295 mg/dl (70-220); POTASSIUM 3.5 mmol/L (3.5-5.1); SODIUM 154 mmol/L (135-144)
[2018-10-05] MEDS: VASOPRESSIN 60 UNIT in DEXTROSE 5% 57 ML IV (08:27)
[2018-10-05] MEDS: PHENYTOIN 1,500 MG in SOD CHLORIDE 0.9% 150 ML IV (09:01)
[2018-10-05] MEDS: ASPIRIN 81 MG TAB NGT (09:08)
[2018-10-05] MEDS: TICAGRELOR 90 MG TABLET PO ×2 (09:08→21:13)
[2018-10-05] MEDS: FAMOTIDINE 20 MG TAB PO ×2 (09:08→21:13)
[2018-10-05] MEDS: LEVETIRACETAM 1000 MG (PMX) 100 ML IVPB ×2 (09:09→21:13)
[2018-10-05] MEDS: POTASSIUM CHLORIDE 20 MEQ POWDER FOR ORAL SOLN PO (12:06)
[2018-10-05 12:54] LABS: PHENYTOIN (DILANTIN) 17.6 ug/ml (10.0-20.0)
[2018-10-05] MEDS: PHENYTOIN 100 MG INJ IV ×2 (14:12→21:12)
[2018-10-05] MEDS: INSULIN HUMAN REGULAR 100 UNIT in SOD CHLORIDE 0.9% 99 ML IV (18:43)
[2018-10-05] MEDS: ACCU-CHEK XX ×6 (18:44→23:38)
[2018-10-05] MEDS ORDERED: INSULIN GLARGINE [LANTus] (100 UNITS/ML) SYG SC (20:00)
[2018-10-05] MEDS: ATORVASTATIN 80 MG TAB NGT (21:12)
[2018-10-06] MEDS: SOD CHLORIDE 0.9% 1,000 ML IV (00:25)
[2018-10-06] MEDS: ACCU-CHEK XX ×22 (01:00→21:39)
[2018-10-06] MEDS: PROPOFOL 100 ML IV ×2 (02:30→14:20)
[2018-10-06] MEDS: ACETAMINOPHEN 650MG/20.3ML CUP PO ×3 (03:40→17:54)
[2018-10-06 05:13] LABS: ADD MAN DIFF? NO
[2018-10-06 05:19] LABS: BASOPHILS % 0.2 % (0.0-2.0); EOSINOPHILS % 0.2 % (0.0-7.0); HEMATOCRIT 25.2 % (37.0-47.0); HEMOGLOBIN 7.8 g/dl (12.0-16.0); LYMPHOCYTES # 1.4 10^3/ul (0.8-2.9); LYMPHOCYTES % 21.7 % (15.0-51.0); MEAN CORPUSCULAR HEMOGLOBIN 27.5 pg (29.0-33.0); MEAN CORPUSCULAR VOLUME 88.7 fl (82.0-101.0); MEAN PLATELET VOLUME 11.4 fl (7.4-10.4); MONOCYTE # 0.6 10^3/ul (0.3-0.9); MONOCYTES % 9.4 % (0.0-11.0); NEUTROPHIL # 4.5 10^3/ul (1.6-7.5); NEUTROPHILS % 67.7 % (39.0-77.0); NUCLEATED RED BLOOD CELLS% 0.3 /100WBC (0.0-0.0); PLATELET COUNT 174 10^3/UL (140-415); RED BLOOD COUNT 2.84 10^6/ul (4.20-5.40)
[2018-10-06 05:19] LABS: WHITE BLOOD COUNT 6.6 10^3/ul (4.8-10.8)
[2018-10-06] MEDS: PHENYTOIN 100 MG INJ IV ×3 (05:25→21:39)
[2018-10-06] MEDS: ARTIFICIAL TEARS 15 ML OPH BOTH EYES ×4 (05:25→23:41)
[2018-10-06] MEDS: PIPER-TAZO 3.375 GM IV (PMX) 100 ML IVPB ×4 (05:26→23:41)
[2018-10-06] MEDS: OCULAR LUBRICANT 3.5 GM OPH OINT BOTH EYES ×4 (05:26→23:41)
[2018-10-06 05:31] LABS: AADO2 Arterial 131.8 mmHg (7.0-24.0); Arterial Base Excess 1.4 mmol/L (-3.0-3); Arterial Blood Gas Oxygen Sat 94.4 mmHG (95.0-98.0); Arterial COHb 0.5 % (0.0-3.0); Arterial Fraction of Oxyhgb 93.9 % (93.0-99.0); Arterial HCO3 25.5 mmol/L (22.0-26.0); Arterial MetHb 0 % (0.0-1.5); Arterial pCO2 38.2 mmhg (35-45); MODE VENT - AC; Site A-Line
[2018-10-06 05:53] LABS: ANION GAP 2 (5-13); BLOOD UREA NITROGEN 26 mg/dl (7-20); CALCIUM 8.2 mg/dl (8.4-10.2); CARBON DIOXIDE 31 mmol/L (21-31); CHLORIDE 124 mmol/L (97-110); CREATININE 0.84 mg/dl (0.44-1.00); Estimated GFR > 60 mL/min (>60); GLUCOSE 136 mg/dl (70-220); POTASSIUM 3.7 mmol/L (3.5-5.1); SODIUM 157 mmol/L (135-144)
[2018-10-06] MEDS: ASPIRIN 81 MG TAB NGT (08:07)
[2018-10-06] MEDS: LEVETIRACETAM 1000 MG (PMX) 100 ML IVPB ×2 (08:07→20:11)
[2018-10-06] MEDS: FAMOTIDINE 20 MG TAB PO ×2 (08:07→20:11)
[2018-10-06] MEDS: TICAGRELOR 90 MG TABLET PO ×2 (08:26→20:12)
[2018-10-06] MEDS: INSULIN HUMAN REGULAR 100 UNIT in SOD CHLORIDE 0.9% 99 ML IV (15:01)
[2018-10-06 15:02] LABS: ANION GAP 5 (5-13); BLOOD UREA NITROGEN 25 mg/dl (7-20); CALCIUM 8.4 mg/dl (8.4-10.2); CARBON DIOXIDE 29 mmol/L (21-31); CHLORIDE 123 mmol/L (97-110); CREATININE 0.94 mg/dl (0.44-1.00); Estimated GFR > 60 mL/min (>60); GLUCOSE 122 mg/dl (70-220); POTASSIUM 3.7 mmol/L (3.5-5.1); SODIUM 157 mmol/L (135-144)
[2018-10-06] MEDS: INSULIN ASPART [NOVOLOG] 3 ML PEN SC ×2 (17:00→20:08)
[2018-10-06] MEDS: ATORVASTATIN 80 MG TAB NGT (20:11)
[2018-10-06] MEDS: INSULIN GLARGINE [LANTus] (100 UNITS/ML) SYG SC (20:12)
[2018-10-07] MEDS: ACETAMINOPHEN 650MG/20.3ML CUP PO (00:54)
[2018-10-07] MEDS: INSULIN ASPART [NOVOLOG] 3 ML PEN SC ×6 (01:00→20:19)
[2018-10-07] MEDS: PROPOFOL 100 ML IV ×2 (02:30→13:18)
[2018-10-07 05:13] LABS: ADD MAN DIFF? NO
[2018-10-07 05:25] LABS: WHITE BLOOD COUNT 8.9 10^3/ul (4.8-10.8)
[2018-10-07 05:25] LABS: BASOPHILS % 0.2 % (0.0-2.0); EOSINOPHILS % 0.3 % (0.0-7.0); HEMATOCRIT 26.3 % (37.0-47.0); HEMOGLOBIN 7.9 g/dl (12.0-16.0); LYMPHOCYTES # 2.6 10^3/ul (0.8-2.9); LYMPHOCYTES % 29.4 % (15.0-51.0); MEAN CORPUSCULAR HEMOGLOBIN 27.9 pg (29.0-33.0); MEAN CORPUSCULAR VOLUME 92.9 fl (82.0-101.0); MEAN PLATELET VOLUME 11.5 fl (7.4-10.4); MONOCYTE # 0.7 10^3/ul (0.3-0.9); MONOCYTES % 7.8 % (0.0-11.0); NEUTROPHIL # 5.5 10^3/ul (1.6-7.5); NEUTROPHILS % 61.6 % (39.0-77.0); NUCLEATED RED BLOOD CELLS # 0.1 10^3/ul (0.0-0.0); NUCLEATED RED BLOOD CELLS% 0.7 /100WBC (0.0-0.0); PLATELET COUNT 200 10^3/UL (140-415); RED BLOOD COUNT 2.83 10^6/ul (4.20-5.40); RED CELL DISTRIBUTION WIDTH 14.1 % (11.5-14.5)
[2018-10-07] MEDS: PHENYTOIN 100 MG INJ IV ×3 (05:30→21:04)
[2018-10-07] MEDS: ARTIFICIAL TEARS 15 ML OPH BOTH EYES ×4 (05:30→23:48)
[2018-10-07] MEDS: OCULAR LUBRICANT 3.5 GM OPH OINT BOTH EYES ×4 (05:30→23:47)
[2018-10-07] MEDS: PIPER-TAZO 3.375 GM IV (PMX) 100 ML IVPB (05:30)
[2018-10-07 06:00] LABS: ANION GAP 4 (5-13); BLOOD UREA NITROGEN 26 mg/dl (7-20); CARBON DIOXIDE 29 mmol/L (21-31); CHLORIDE 124 mmol/L (97-110); CREATININE 0.91 mg/dl (0.44-1.00); Estimated GFR > 60 mL/min (>60); GLUCOSE 162 mg/dl (70-220); POTASSIUM 3.8 mmol/L (3.5-5.1); SODIUM 157 mmol/L (135-144)
[2018-10-07] MEDS: LEVETIRACETAM 1000 MG (PMX) 100 ML IVPB ×2 (08:52→22:32)
[2018-10-07] MEDS: FAMOTIDINE 20 MG TAB PO ×2 (08:57→21:01)
[2018-10-07] MEDS: ASPIRIN 81 MG TAB NGT (08:57)
[2018-10-07] MEDS: ACETAMINOPHEN 325 MG TAB PO (08:58)
[2018-10-07] MEDS: METOPROLOL 25 MG TAB NGT ×2 (08:58→20:10)
[2018-10-07] MEDS: LOSARTAN 25 MG TAB NGT (08:58)
[2018-10-07] MEDS: TICAGRELOR 90 MG TABLET PO ×2 (08:59→21:02)
[2018-10-07] MEDS: DESMOPRESSIN 4 MCG INJ SC ×2 (10:24→21:01)
[2018-10-07] MEDS: SOD CHLORIDE 0.9% 1,000 ML IV (10:47)
[2018-10-07] MEDS: NORepinephrine 32 MG in DEXTROSE 5% 218 ML IV (12:15)
[2018-10-07 17:41] LABS: PHENYTOIN (DILANTIN) 11.6 ug/ml (10.0-20.0)
[2018-10-07] MEDS: INSULIN GLARGINE [LANTus] (100 UNITS/ML) SYG SC (20:09)
[2018-10-07] MEDS: ATORVASTATIN 80 MG TAB NGT (21:01)
[2018-10-08] MEDS: INSULIN ASPART [NOVOLOG] 3 ML PEN SC ×6 (01:04→20:28)
[2018-10-08] MEDS: PROPOFOL 100 ML IV ×2 (01:26→14:30)
[2018-10-08] MEDS: OCULAR LUBRICANT 3.5 GM OPH OINT BOTH EYES ×3 (05:00→17:21)
[2018-10-08] MEDS: ARTIFICIAL TEARS 15 ML OPH BOTH EYES ×3 (05:00→17:21)
[2018-10-08 05:13] LABS: HEMATOCRIT 29.4 % (37.0-47.0); HEMOGLOBIN 8.6 g/dl (12.0-16.0); MEAN CORPUSCULAR HEMOGLOBIN 27.4 pg (29.0-33.0); MEAN CORPUSCULAR HGB CONC 29.3 g/dl (32.0-37.0); MEAN CORPUSCULAR VOLUME 93.6 fl (82.0-101.0); MEAN PLATELET VOLUME 11.9 fl (7.4-10.4); NUCLEATED RED BLOOD CELLS% 0.3 /100WBC (0.0-0.0); PLATELET COUNT 278 10^3/UL (140-415); RED BLOOD COUNT 3.14 10^6/ul (4.20-5.40); RED CELL DISTRIBUTION WIDTH 14.4 % (11.5-14.5)
[2018-10-08 05:18] LABS: ADD MAN DIFF? YES; POSITIVE DIFF @See below
[2018-10-08] MEDS: PHENYTOIN 100 MG INJ IV ×3 (05:24→21:53)
[2018-10-08 05:34] LABS: ANION GAP 3 (5-13); BLOOD UREA NITROGEN 24 mg/dl (7-20); CALCIUM 8.1 mg/dl (8.4-10.2); CARBON DIOXIDE 30 mmol/L (21-31); CHLORIDE 123 mmol/L (97-110); CREATININE 0.81 mg/dl (0.44-1.00); Estimated GFR > 60 mL/min (>60); GLUCOSE 200 mg/dl (70-220); SODIUM 156 mmol/L (135-144)
[2018-10-08 06:46] LABS: ANISOCYTOSIS 2+ (0-0); BAND NEUTROPHILS #M 3.7 10^3/ul (0.0-0.6); BAND NEUTROPHILS % (M) 21 % (0-4); EOSINOPHILS % (M) 1 % (0-7); ERYTHROBLAST% (NRBC) (M) 1 % (0-0); GIANT THROMBO% (M) 2 % (0-0); LYMPHOCYTES #M 2.1 10^3/ul (0.8-2.9); LYMPHOCYTES % (M) 12 % (15-51); MICROCYTOSIS 1+ (0-0); MONOCYTE #M 0.7 10^3/ul (0.3-0.9); MONOCYTES % (M) 4 % (0-11); MYELOCYTES #M 0.1 10^3/ul (0.0-0.0); MYELOCYTES % (M) 1 % (0-0); PLATELET ESTIMATE NORMAL; POLYCHROMASIA 3+ (0-0); REACTIVE LYMPHOCYTES #M 0.1 10^3/ul (0.0-0.0); REACTIVE LYMPHOCYTES% (M) 1 % (0-0); SEG NEUT #M 11.5 10^3/ul (1.6-7.5); SEGMENTED NEUTROPHILS (M) % 60 % (39-77); SMUDGE%M 1 % (0-0)
[2018-10-08] MEDS: LOSARTAN 25 MG TAB NGT (09:00)
[2018-10-08] MEDS: METOPROLOL 25 MG TAB NGT ×2 (09:00→20:30)
[2018-10-08] MEDS: ASPIRIN 81 MG TAB NGT (09:12)
[2018-10-08] MEDS: FAMOTIDINE 20 MG TAB PO ×2 (09:12→20:21)
[2018-10-08] MEDS: TICAGRELOR 90 MG TABLET PO ×2 (09:13→20:28)
[2018-10-08] MEDS: DESMOPRESSIN 4 MCG INJ SC ×2 (09:16→21:16)
[2018-10-08] MEDS ORDERED: VANCOMYCIN IV PER PHARMACY XX (09:30)
[2018-10-08] MEDS: LEVETIRACETAM 1000 MG (PMX) 100 ML IVPB ×2 (09:45→20:21)
[2018-10-08] MEDS: CEFEPIME 1GM/50 ML (PMX) 50 ML IVPB ×2 (10:00→20:21)
[2018-10-08] MEDS: VANCOMYCIN HCL 2 GM in SOD CHLORIDE 0.9% 500 ML IVPB (11:41)
[2018-10-08 12:49] LABS: PROTIME 15.3 Sec (11.9-14.9); PT RATIO 1.2
[2018-10-08 12:50] LABS: PARTIAL THROMBOPLASTIN TIME 28.5 Sec (23.0-35.0)
[2018-10-08] MEDS: ATORVASTATIN 80 MG TAB NGT (20:21)
[2018-10-08] MEDS: INSULIN GLARGINE [LANTus] (100 UNITS/ML) SYG SC (20:28)
[2018-10-09] MEDS: ARTIFICIAL TEARS 15 ML OPH BOTH EYES ×2 (00:39→05:46)
[2018-10-09] MEDS: VANCOMYCIN HCL 1.25 GM in SOD CHLORIDE 0.9% 250 ML IVPB (00:39)
[2018-10-09] MEDS: OCULAR LUBRICANT 3.5 GM OPH OINT BOTH EYES ×2 (00:39→05:46)
[2018-10-09] MEDS: INSULIN ASPART [NOVOLOG] 3 ML PEN SC ×3 (00:44→08:34)
[2018-10-09] MEDS: PROPOFOL 100 ML IV (02:16)
[2018-10-09 05:27] LABS: ADD MAN DIFF? NO
[2018-10-09 05:30] LABS: WHITE BLOOD COUNT 17.9 10^3/ul (4.8-10.8)
[2018-10-09 05:30] LABS: HEMATOCRIT 24.5 % (37.0-47.0); HEMOGLOBIN 7.2 g/dl (12.0-16.0); MEAN CORPUSCULAR HEMOGLOBIN 27.4 pg (29.0-33.0); MEAN CORPUSCULAR HGB CONC 29.4 g/dl (32.0-37.0); MEAN CORPUSCULAR VOLUME 93.2 fl (82.0-101.0); NUCLEATED RED BLOOD CELLS% 0.1 /100WBC (0.0-0.0); PLATELET COUNT 313 10^3/UL (140-415); RED BLOOD COUNT 2.63 10^6/ul (4.20-5.40); RED CELL DISTRIBUTION WIDTH 14.3 % (11.5-14.5)
[2018-10-09] MEDS: PHENYTOIN 100 MG INJ IV (05:46)
[2018-10-09 05:57] LABS: ANION GAP 4 (5-13); BLOOD UREA NITROGEN 18 mg/dl (7-20); CALCIUM 7.7 mg/dl (8.4-10.2); CARBON DIOXIDE 26 mmol/L (21-31); CHLORIDE 121 mmol/L (97-110); CREATININE 0.83 mg/dl (0.44-1.00); Estimated GFR > 60 mL/min (>60); GLUCOSE 203 mg/dl (70-220); POTASSIUM 3.6 mmol/L (3.5-5.1); SODIUM 151 mmol/L (135-144)
[2018-10-09 05:58] LABS: POSITIVE DIFF @See below
[2018-10-09] MEDS: NORepinephrine 32 MG in DEXTROSE 5% 218 ML IV (05:59)
[2018-10-09 08:28] LABS: ANISOCYTOSIS 1+ (0-0); BAND NEUTROPHILS % (M) 6 % (0-4); EOSINOPHILS % (M) 2 % (0-7); GIANT THROMBO% (M) 1 % (0-0); LYMPHOCYTES #M 2.1 10^3/ul (0.8-2.9); LYMPHOCYTES % (M) 12 % (15-51); MICROCYTOSIS 1+ (0-0); MONOCYTE #M 0.5 10^3/ul (0.3-0.9); MONOCYTES % (M) 3 % (0-11); PLATELET ESTIMATE NORMAL; POLYCHROMASIA 2+ (0-0); SEGMENTED NEUTROPHILS (M) % 77 % (39-77); SMUDGE%M 6 % (0-0)
[2018-10-09] MEDS: DESMOPRESSIN 4 MCG INJ SC (08:31)
[2018-10-09] MEDS: ASPIRIN 81 MG TAB NGT (08:31)
[2018-10-09] MEDS: FAMOTIDINE 20 MG TAB PO (08:31)
[2018-10-09] MEDS: CEFEPIME 1GM/50 ML (PMX) 50 ML IVPB (08:31)
[2018-10-09] MEDS: TICAGRELOR 90 MG TABLET PO (08:33)
[2018-10-09] MEDS: METOPROLOL 25 MG TAB NGT (08:34)
[2018-10-09] MEDS: LOSARTAN 25 MG TAB NGT (08:34)
[2018-10-09] MEDS: LEVETIRACETAM 1000 MG (PMX) 100 ML IVPB (08:43)
[2018-10-09 11:24] LABS: ADD MAN DIFF? NO
[2018-10-09 11:26] LABS: WHITE BLOOD COUNT 19.4 10^3/ul (4.8-10.8)
[2018-10-09 11:26] LABS: BASOPHILS % 0.2 % (0.0-2.0); EOSINOPHILS # 0.2 10^3/ul (0.0-0.5); EOSINOPHILS % 1.2 % (0.0-7.0); HEMATOCRIT 23.8 % (37.0-47.0); HEMOGLOBIN 7.1 g/dl (12.0-16.0); LYMPHOCYTES # 1.7 10^3/ul (0.8-2.9); LYMPHOCYTES % 8.9 % (15.0-51.0); MEAN CORPUSCULAR HGB CONC 29.8 g/dl (32.0-37.0); MEAN CORPUSCULAR VOLUME 93.7 fl (82.0-101.0); MONOCYTE # 0.8 10^3/ul (0.3-0.9); NEUTROPHIL # 16.2 10^3/ul (1.6-7.5); NEUTROPHILS % 83.3 % (39.0-77.0); PLATELET COUNT 304 10^3/UL (140-415); RED BLOOD COUNT 2.54 10^6/ul (4.20-5.40); RED CELL DISTRIBUTION WIDTH 14.2 % (11.5-14.5)
[2018-10-09] MEDS ORDERED: DIMETHICONE STICK TOP (12:00)
[2018-10-09] MEDS ORDERED: ARTIFICIAL TEARS 15 ML OPH BOTH EYES (12:00)
== END 2018-10-09 12:48 | disposition expired | DRG 246 ==
LOC: E/R 00:39 → ICU 01:25
PROC: 027135Z Dilation of Coronary Artery, Two Arteries with Two Drug-eluting Intraluminal Devices, Percutaneous Approach (ICD-10-PCS; principal; 2018-09-30 01:15)
PROC: 4A023N7 Measurement of Cardiac Sampling and Pressure, Left Heart, Percutaneous Approach (ICD-10-PCS; 2018-09-30 01:15)
PROC: B211YZZ Fluoroscopy of Multiple Coronary Arteries using Other Contrast (ICD-10-PCS; 2018-09-30 01:15)
PROC: B215YZZ Fluoroscopy of Left Heart using Other Contrast (ICD-10-PCS; 2018-09-30 01:15)
PROC: 0BH17EZ Insertion of Endotracheal Airway into Trachea, Via Natural or Artificial Opening (ICD-10-PCS; 2018-09-30 01:26)
PROC: 5A1955Z Respiratory Ventilation, Greater than 96 Consecutive Hours (ICD-10-PCS; 2018-09-30 01:26)
PROC: 02HV33Z Insertion of Infusion Device into Superior Vena Cava, Percutaneous Approach (ICD-10-PCS; 2018-09-30 01:26)
DX: I21.29 ST elevation (STEMI) myocardial infarction involving other sites (principal); E11.10 Type 2 diabetes mellitus with ketoacidosis without coma; I50.21 Acute systolic (congestive) heart failure; J69.0 Pneumonitis due to inhalation of food and vomit; J96.01 Acute respiratory failure with hypoxia; J96.02 Acute respiratory failure with hypercapnia; R65.11 Systemic inflammatory response syndrome (SIRS) of non-infectious origin with acute organ dysfunction; G93.1 Anoxic brain damage, not elsewhere classified; E23.2 Diabetes insipidus; I46.2 Cardiac arrest due to underlying cardiac condition; E78.5 Hyperlipidemia, unspecified; E11.65 Type 2 diabetes mellitus with hyperglycemia; E66.9 Obesity, unspecified; F32.9 Major depressive disorder, single episode, unspecified; F41.9 Anxiety disorder, unspecified; G40.909 Epilepsy, unspecified, not intractable, without status epilepticus; I11.0 Hypertensive heart disease with heart failure; I25.5 Ischemic cardiomyopathy; Z79.4 Long term (current) use of insulin; Z68.33 Body mass index [BMI] 33.0-33.9, adult
CPT/HCPCS: 31500; 36415; 36600; 70450; 71045; 80048; 80053; 80061; 80185; 80307; 81001; 81003; 82150; 82550; 82553; 82803; 82962; 83036; 83605; 83690; 83735; 84100; 84132; 84439; 84443; 84484; 85025; 85378; 85384; 85610; 85730; 86850; 86900; 86901; 87040-91; 87081; 87086; 92928; 93005; 93306; 93458; 94002; 94003; 94770; 95819; 99291-25